=== PATIENT | male | born 1995 | race Caucasian/White ===

== ENCOUNTER 2020-10-25 17:59 | Emergency (ER) | payer OTHER ==
[~2020-10-25] VITALS: Wt 98.9 kg
[2020-10-25] MEDS ORDERED: CEPHALEXIN500 M1 PO (19:21)
== END 2020-10-25 19:31 | disposition home or self-care (01) ==
LOC: ED 17:59
DX: S91.121A Laceration with foreign body of right great toe without damage to nail, initial encounter (principal); Z98.890 Other specified postprocedural states; W01.198A Fall on same level from slipping, tripping and stumbling with subsequent striking against other object, initial encounter; Y93.89 Activity, other specified; Y92.828 Other wilderness area as the place of occurrence of the external cause; Y99.8 Other external cause status

== ENCOUNTER → 2020-11-07 | Outpatient (CLI) | payer OTHER ==
[~2020-11-07] MED LIST: CEPHALEXIN500 M1 PO
== END ==
LOC: WOUNDCARE 01:23
PROVIDERS: ATTEND Nurse Practitioner
DX: S91.121A Laceration with foreign body of right great toe without damage to nail, initial encounter (principal); X58.XXXA Exposure to other specified factors, initial encounter; Y93.89 Activity, other specified; Y92.89 Other specified places as the place of occurrence of the external cause; Y99.8 Other external cause status